=== PATIENT | male | born 1955 | race Caucasian/White ===

== ENCOUNTER 2016-12-08 14:01 | Emergency (ER) | payer OTHER ==
[~2016-12-08] VITALS: Ht 180.3 cm; Wt 80.0 kg
[~2016-12-08 14:01] MED LIST: FLEX5TAB PO
[2016-12-08 14:03] VITALS: BP 132/100; PULSE 82; RESP 20; TEMP 97.5; O2SAT 95
[2016-12-08 17:24] VITALS: BP 156/78; PULSE 57; RESP 16; TEMP 98; O2SAT 96
[2016-12-08] MEDS ORDERED: SODIUM CHLOR 0.9% 1000 ML INJ 1,000 ML IV SCH (17:27)
[2016-12-08 17:30] VITALS: O2SAT 97
[2016-12-08] MEDS ORDERED: SODIUM CHLORIDE 0.9% FLUSH 5 ML FLUSH IVF PRN (17:30)
--- NOTE | 2016-12-08 17:30 | PD ---
HPI Chief Complaint: Abdominal Pain Time Seen by Provider: 17:22 Travel History International Travel<30 days: No Contact w/Intl Traveler<30days: No Traveled to known affect area: No History of Present Illness HPI 61-year-old male here for evaluation of left lower quadrant abdominal pain. Patient has been having pain in this area for the last 3 days. Pain is described as sharp, constant, moderate, currently 4 out of 10, worse with movement and palpation. He denies diarrhea, melena, or hematochezia. No nausea or vomiting. No history of abdominal surgeries. No urinary symptoms. No pain. PFSH Past Medical History Diabetes: No Hepatitis: No Hiatal Hernia: No Thyroid Disease: No ?: Not Past Surgical History Oral Surgery: Yes (TONSILLECTOMY) Pacemaker: No Social History Alcohol Use: Yes Tobacco Use: No Substance Use: Yes Allergies-Medications (Allergen,Severity, Reaction): Coded Allergies: Penicillin (Unverified Allergy, Mild, Rash, 07/18/11) Reported Meds & Prescriptions Reported Meds & Active Scripts Active Lortab (Hydrocodone-Acetaminophen) 5-325 Mg Tab 1 Tab PO Q6H PRN Flagyl (Metronidazole) 500 Mg Tab 500 Mg PO BID 10 Days Cipro (Ciprofloxacin HCl) 500 Mg Tab 500 Mg PO BID 10 Days Reported Flexeril (Cyclobenzaprine HCl) 5 Mg Tab 5 Mg PO HS Review of Systems Except as stated in HPI: all other systems reviewed are Neg Physical Exam Narrative GENERAL: Well-developed, well-nourished, comfortable, no acute distress SKIN: Warm and dry. No rash. HEAD: Atraumatic. Normocephalic. EYES: Pupils equal and round. No scleral icterus. No injection or drainage. ENT: Mucous membranes pink and moist. NECK: Trachea midline. No JVD. CARDIOVASCULAR: Regular rate and rhythm. RESPIRATORY: No accessory muscle use. Clear to auscultation. Breath sounds equal bilaterally. GASTROINTESTINAL: Abdomen soft, nondistended. Left lower quadrant tenderness without peritoneal signs. Rest of abdomen is soft and nontender. No hernias. Normal bowel sounds. MUSCULOSKELETAL: No obvious deformities. No clubbing. No cyanosis. No edema. NEUROLOGICAL: Awake and alert. No obvious cranial nerve deficits. Motor grossly within normal limits. Normal speech. PSYCHIATRIC: Appropriate mood and affect; insight and judgment normal. Data Data Last Documented VS Vital Signs Date Time Temp Pulse Resp B/P Pulse Ox O2 Delivery O2 Flow Rate FiO2 12/08/16 17:30 97 Room Air 12/08/16 17:24 98.0 57 16 156/78 Orders Complete Blood Count With Diff (12/08/16 17:27) Comprehensive Metabolic Panel (12/08/16:27) Lipase (12/08/16:) Prothrombin Time / Inr (Pt) (12/08/16:) Act Partial Throm Time (Ptt) (12/08/16:) Ct Abd/Pel W Iv Contrast(Rout) (12/08/16:27) Iv Access Insert/Monitor (12/08/16:) Ecg Monitoring (12/08/16) Oximetry (12/08/16:) Sodium Chlor 0.9% 1000 Ml Inj (Ns 1000 M (12/08/16 17:27) Sodium Chloride 0.9% Flush (Ns Flush) (12/08/16 17:30) Iohexol 350 Inj (Omnipaque 350 Inj) (12/08/16 19:00) Ciprofloxacin (Cipro) (12/08/16 20:00) Metronidazole (Flagyl) (12/08/16 20:00) Ketorolac Inj (Toradol Inj) (12/08/16 20:00) Labs Laboratory Tests Test 12/08/16 17:35 White Blood Count 9.1 TH/MM3 Red Blood Count 4.87 MIL/MM3 Hemoglobin 14.7 GM/DL Hematocrit 44.1 % Mean Corpuscular Volume 90.7 FL Mean Corpuscular Hemoglobin 30.3 PG Mean Corpuscular Hemoglobin 33.4 % Concent Red Cell Distribution Width 12.8 % Platelet Count 311 TH/MM3 Mean Platelet Volume 8.6 FL Neutrophils (%) (Auto) 49.4 % Lymphocytes (%) (Auto) 33.5 % Monocytes (%) (Auto) 10.0 % Eosinophils (%) (Auto) 6.6 % Basophils (%) (Auto) 0.5 % Neutrophils # (Auto) 4.5 TH/MM3 Lymphocytes # (Auto) 3.1 TH/MM3 Monocytes # (Auto) 0.9 TH/MM3 Eosinophils # (Auto) 0.6 TH/MM3 Basophils # (Auto) 0.0 TH/MM3 CBC Comment DIFF FINAL Differential Comment Prothrombin Time 11.4 SEC Prothromb Time International 1.0 RATIO Ratio Activated Partial 26.6 SEC Thromboplast Time Sodium Level 139 MEQ/L Potassium Level 4.0 MEQ/L Chloride Level 102 MEQ/L Carbon Dioxide Level 28.1 MEQ/L Anion Gap 9 MEQ/L Blood Urea Nitrogen 15 MG/DL Creatinine 1.10 MG/DL Estimat Glomerular Filtration 68 ML/MIN Rate Random Glucose 79 MG/DL Calcium Level 9.0 MG/DL Total Bilirubin 0.2 MG/DL Aspartate Amino Transf 10 U/L (AST/SGOT) Alanine Aminotransferase 29 U/L (ALT/SGPT) Alkaline Phosphatase 99 U/L Total Protein 8.0 GM/DL Albumin 3.8 GM/DL Lipase 274 U/L [facility] Medical Decision Making Medical Screen Exam Complete: Yes Emergency Medical Condition: Yes Differential Diagnosis Diverticulitis, colitis, cystitis, UTI, gastritis, pancreatitis, nephrolithiasis , pyelonephritis, Narrative Course Initial vital signs show heart rate 82, blood pressure 132/100, pulse ox 96% on room air, oral temp of 98F. CBC is unremarkable. CMP is unremarkable. Lipase is 274. CT abdomen pelvis: CONCLUSION: 1. Focal mild inflammatory changes adjacent to the sigmoid colon suggestive of some focal diverticulitis. 2. Fatty infiltration of the liver. Patient was made aware of all findings. He is resting comfortably. There are no peritoneal signs on exam. He will be started on Cipro and Flagyl. He tells me that he has a colonoscopy scheduled for January of this year. He is stable for discharge home with outpatient follow-up with a primary care physician this week. He was informed on when to return to the emergency department. He verbalizes understanding and agreement with plan. Diagnosis Primary Impression: Sigmoid diverticulitis Referrals: Primary Care Physician 3 days Additional Instructions: Take antibiotic as prescribed. Follow-up with your primary care physician this week. Return to the emergency department for worsening symptoms or any other concerns. Scripts Hydrocodone-Acetaminophen (Lortab)5-325 Mg Tab1 Tab PO Q6H PRN (PAIN) #12 TAB Ref 0 Prov:Murphy Aldridge MD 12/08/16 Metronidazole (Flagyl)500 Mg [id number] Mg PO BID 10 Days Ref 0 Prov:Murphy Aldridge MD 12/08/16 Ciprofloxacin (Cipro)500 Mg [id number] Mg PO BID 10 Days Ref 0 Prov:Murphy Aldridge MD 12/08/16 Disposition: 01 DISCHARGE HOME Condition: Stable Murphy Aldridge MD Dec 08, 2016 17:30
[2016-12-08 18:03] LABS: AUTOMATED NEUTROPHIL # 4.5 TH/MM3 (1.8-7.7); BASOPHIL % 0.5 % (0.0-2.0); EOSINOPHIL # 0.6 TH/MM3 (0-0.4); EOSINOPHIL % 6.6 % (0.0-4.0); HEMATOCRIT 44.1 % (39.0-51.0); HEMO FLAGS DIFF FINAL; LYMPH % 33.5 % (9.0-44.0); LYMPHOCYTE # 3.1 TH/MM3 (1.0-4.8); MEAN CELL VOLUME 90.7 FL (80.0-100.0); MEAN CORPUSCULAR HEMOGLOBIN 30.3 PG (27.0-34.0); MEAN CORPUSCULAR HGB CONC 33.4 % (32.0-36.0); NEUT % 49.4 % (16.0-70.0); PLATELET COUNT 311 TH/MM3 (150-450); RED BLOOD COUNT 4.87 MIL/MM3 (4.50-5.90); RED CELL DISTRIBUTION WIDTH 12.8 % (11.6-17.2); WHITE BLOOD COUNT 9.1 TH/MM3 (4.0-11.0)
[2016-12-08 18:13] LABS: APTT (PATIENT) 26.6 SEC (24.3-30.1); PROTHROMBIN TIME - PATIENT 11.4 SEC (9.8-11.6)
[2016-12-08 18:16] LABS: ANION GAP 9 MEQ/L (5-15); AST (GOT) 10 U/L (15-37); BICARBONATE 28.1 MEQ/L (21.0-32.0); BLOOD UREA NITROGEN 15 MG/DL (7-18); CHLORIDE 102 MEQ/L (98-107); GLOMERULAR FILTRATION RATE 68 ML/MIN (>89); SODIUM (NA) 139 MEQ/L (136-145)
[2016-12-08 18:19] LABS: ALKALINE PHOSPHATASE 99 U/L (45-117); ALT (GPT) 29 U/L (12-78); TOTAL BILIRUBIN ADULT 0.2 MG/DL (0.2-1.0)
[2016-12-08] MEDS ORDERED: IOHEXOL 350 MG/ML 10 ML VIAL (for RAD DIAG) IV ONE (19:00)
--- NOTE | 2016-12-08 19:36 | RADRPT ---
EXAM DATE/TIME: 12/08/2016 18:53 [place] COMPARISON: No previous studies available for comparison. INDICATIONS : Abdomen pain. IV CONTRAST: 100 cc Omnipaque 350 (iohexol) IV ORAL CONTRAST: No oral contrast ingested. RADIATION DOSE: 9.96 CTDIvol (mGy) MEDICAL HISTORY : Hypertension. SURGICAL HISTORY : None. ENCOUNTER: Initial ACUITY: 1 day PAIN SCALE: 4/10 LOCATION: Bilateral abdomen. TECHNIQUE: Volumetric scanning of the abdomen and pelvis was performed. Using automated exposure control and ad justment of the mA and/or kV according to patient size, radiation dose was kept as low as reasonably achievable to obtain optimal diagnostic quality images. FINDINGS: LOWER LUNGS: The visualized lower lungs are clear. LIVER: Homogeneous density without lesion. There is some fatty infiltration of the liver. There is no dilat ion of the biliary tree. No calcified gallstones. SPLEEN: Normal size without lesion. PANCREAS: Within normal limits. KIDNEYS: Normal in size and shape. There is no mass, stone or hydronephrosis. ADRENAL GLANDS: Within normal limits. VASCULAR: There is no aortic aneurysm. BOWEL/MESENTERY: The bowel gas pattern is within normal limits. There is stool in the colon. There is scattered divert icula along the sigmoid and descending colon. In the left lower quadrant there is some mild inflammat ory changes adjacent to the sigmoid colon suggestive of some focal diverticulitis. No free fluid or l oculated fluid collections are demonstrated. ABDOMINAL WALL: Within normal limits. RETROPERITONEUM: There is no lymphadenopathy. BLADDER: No wall thickening or mass. REPRODUCTIVE: Within normal limits. INGUINAL: There is no lymphadenopathy or hernia. MUSCULOSKELETAL: Within normal limits for patient age. CONCLUSION: 1. Focal mild inflammatory changes adjacent to the sigmoid colon suggestive of some focal diverticuli tis. 2. Fatty infiltration of the liver. Franklin De Anda MD on December 08, 2016 at 19:31 Board Certified Radiologist. This report was verified electronically.
[2016-12-08] MEDS ORDERED: HYDR-3533 PO (19:46)
[2016-12-08] MEDS ORDERED: METR-1 PO (19:46)
[2016-12-08] MEDS ORDERED: CIPR-9 PO (19:46)
[2016-12-08] MEDS ORDERED: CIPROFLOXACIN 500 MG TAB PO ONE (20:00)
[2016-12-08] MEDS ORDERED: metroNIDAZOLE 500 MG TAB PO ONE (20:00)
[2016-12-08] MEDS ORDERED: KETOROLAC TROMETHAMINE 30 MG/ML (IVP) VIAL IV PUSH ONE (20:00)
== END 2016-12-08 20:53 | disposition home or self-care (01) ==
LOC: NEPC 14:01
DX: K57.32 Diverticulitis of large intestine without perforation or abscess without bleeding (principal); K76.0 Fatty (change of) liver, not elsewhere classified; Z88.0 Allergy status to penicillin
CPT/HCPCS: 74177; 80053; 83690; 85025; 85610; 85730; 96374; 99284; J1885; J7030; Q9967